=== PATIENT | male | born 1980 | race Caucasian/White ===

== ENCOUNTER 2018-03-09 16:07 | Emergency (ER) | payer BC ==
[2018-03-09 16:19] VITALS: BP 129/84
--- NOTE | 2018-03-09 16:45 | EDM.PDOC ---
ED HPI GENERAL MEDICAL PROBLEM - General Chief Complaint: ENT Problem Stated Complaint: TROUBLE SWALLOWING Time Seen by Provider: 03/09/18 16:21 Source of Information: Reports: Patient History Limitations: Reports: No Limitations - History of Present Illness INITIAL COMMENTS - FREE TEXT/NARRATIVE: The patient states that he has had the sensation of a lump in the upper part of his chest and left neck, that is worse after he eats, for several months. He states that when he belches, it has a "nasty" smell. He has no problems swallowing either solids or liquids, and his symptoms are not related to body position. No recent weight loss, although the patient is apprehensive about eating. The patient states that he quit smoking, chewing tobacco, and cut way back on his alcohol, 67 days ago, in an attempt to alleviate his symptoms. His symptoms persisted. He states that he was seen at the [facility] about 5 weeks ago. An influenza and strep test were negative. He was discharged home, but returned 3 days later for persistent symptoms, at which time they prescribed omeprazole 20 mg twice a day for 5 days, then once a day thereafter. He states that he is still on the omeprazole. They also recommended an [id number] probiotic, and that he drink apple cider vinegar, to "even out" his stomach acidity. He states that these treatments have not helped at all, in fact, the apple cider vinegar seems to make his symptoms worse. The patient then followed up with his primary care physician in [place] about 3 weeks ago. He states in the full blood panel was performed, and returned as normal. The PCP did not have any recommendations, as the patient was already on omeprazole, and the patient is to follow-up with his PCP in 2 weeks. The patient now presents to the ED because of persistent symptoms. Throat Pain Score (Numeric/FACES): 5 - Related Data Allergies Allergy/AdvReac Type Severity Reaction Status Date / Time No Known Allergies Allergy Verified 09/06/15 12:08 Home Meds: Home Meds Lisinopril 40 mg PO DAILY 02/15/15 [History] Past Medical History Cardiovascular History: Reports: Hypertension Endocrine/Metabolic History: Reports: Obesity/BMI 30+ Social & Family History - Tobacco Use Smoking Status *Q: Former Smoker Tobacco Use Within Last Twelve Months: Smokeless Tobacco Years of Tobacco use: 3 Packs/Tins Daily: 0.1 Month/Year Tobacco Last Used: Quit Dec 2017 - Caffeine Use Caffeine Use: Reports: Coffee, Energy Drinks, Soda, Tea - Alcohol Use Alcohol Use History: Yes Days Per Week of Alcohol Use: 2 Number of Drinks Per Day: 1 Total Drinks Per Week: 2 Alcohol Use Frequency: Socially - Recreational Drug Use Recreational Drug Use: No - Living Situation & Occupation Living situation: Reports: , with Spouse, with Family (4 kids) Occupation: Employed (plan consultant) ED ROS GENERAL - Review of Systems Review Of Systems: ROS reveals no pertinent complaints other than HPI. ED EXAM, GENERAL - Physical Exam Exam: See Below Exam Limited By: No Limitations General Appearance: Alert, WD/WN, No Apparent Distress Eye Exam: Bilateral Eye: Normal Inspection Ears: Normal External Exam, Hearing Grossly Normal Nose: Normal Inspection, No Blood Throat/Mouth: Normal Inspection, Normal Lips, Normal Teeth, Normal Gums, Normal Oropharynx, Normal Voice, No Airway Compromise Head: Atraumatic, Normocephalic Neck: Normal Inspection, Supple, Non-Tender, Full Range of Motion. No: Lymphadenopathy (L), Lymphadenopathy (R) Respiratory/Chest: No Respiratory Distress, Lungs Clear, Normal Breath Sounds, No Accessory Muscle Use Cardiovascular: Normal Peripheral Pulses, Regular Rate, Rhythm, No Edema, No Gallop, No JVD, No Murmur, No Rub Peripheral Pulses: 4+: Radial (L), Radial (R) GI/Abdominal: Normal Bowel Sounds, Soft, Non-Tender, No Organomegaly, No Distention, No Abnormal Bruit, No Mass, Other (Obese) (Male) Exam: Deferred Rectal (Males) Exam: Deferred Back Exam: Normal Inspection, Full Range of Motion Extremities: Normal Inspection, Normal Range of Motion, No Pedal Edema, Normal Capillary Refill Neurological: Alert, Oriented, Normal Cognition, No Motor/Sensory Deficits Psychiatric: Normal Affect Skin Exam: Warm, Dry, Intact, Normal Color, No Rash Course - Vital Signs Last Recorded V/S: Last Vital Signs Temp 37.3 C 03/09/18 16:18 Pulse 93 03/09/18 16:18 Resp 20 03/09/18 16:18 BP 129/84 03/09/18 16:18 Pulse Ox 98 03/09/18 16:18 - Re-Assessments/Exams Free Text/Narrative Re-Assessment/Exam: 03/09/18 16:39 The patient has been suffering from globus sensation for the past 5 weeks, with no relief despite taking omeprazole. His symptoms are concerning for a Zenker's diverticulum versus GERD versus an esophageal tumor, as the patient has a history of smoking, chewing tobacco, and drinking. I'm recommending an EGD, and am therefore referring him to Dr. Denis. Since the omeprazole is not helping, I don't see that he needs to continue to take it, and I am advising that he stop drinking apple cider vinegar. Additionally, while probiotics have roles in certain medical circumstances, none is present in this case. Departure - Departure Time of Disposition: 16:41 Disposition: Home, Self-Care 01 Condition: Good Clinical Impression: Globus sensation - Discharge Information Referrals: PCP,Not In Area [Primary Care Provider] - Librado Denis MD [Physician] - Additional Instructions: You were seen in the emergency room for 5 weeks of the sensation of a lump in your throat, a condition called globus sensation. The next appropriate test is an EGD (scope of your esophagus and stomach), to evaluate for a Zenker's diverticulum, esophageal motility disorder, or evidence of acid reflux. Follow-up with the surgeon Dr. Denis at the next available appointment, to arrange for an EGD. In the meantime, since omeprazole is not helping, you do not need to continue to take it. We strongly advise that you STOP drinking apple cider vinegar, and while probiotics can be useful in some circumstances, there is no indication for you to take it at this time. If any other problems, please do not hesitate to return to the ER.
== END 2018-03-09 17:00 | disposition home or self-care (01) ==
LOC: JD.ED 16:07
DX: F45.8 Other somatoform disorders (principal); E66.9 Obesity, unspecified; Z79.899 Other long term (current) drug therapy; Z87.891 Personal history of nicotine dependence
CPT/HCPCS: 99283; 99284

== ENCOUNTER 2018-03-13 10:01 | Emergency (ER) | payer BC ==
[2018-03-13 10:13] VITALS: BP 122/94
[2018-03-13] MEDS ORDERED: Iopamidol 612 MG/ML 100 ML Bottle IVPUSH ONE (11:19)
[2018-03-13] MEDS ORDERED: Sodium Chloride 0.9% 10 ML Syringe FLUSH PRN (11:19)
--- NOTE | 2018-03-13 11:24 | EDM.PDOC ---
<Daphney Johnson - Last Filed: 03/13/18 11:15> ED HPI GENERAL MEDICAL PROBLEM - General Chief Complaint: Respiratory Problem Stated Complaint: TROUBLE BREATHING Time Seen by Provider: 03/13/18 10:29 Source of Information: Reports: Patient History Limitations: Reports: No Limitations - History of Present Illness INITIAL COMMENTS - FREE TEXT/NARRATIVE: Patient is a 37 YO male who presents today with tightness in his throat. He states this started about 5 weeks ago. He reports a feeling of tightness that is limiting his ability to swallow solids. He is apprehensive to eat thus has lost 10 lbs. He states it is not necessarily painful to swallow. He has not chocked on solids or liquids. He states the feeling is worse after eating and last several hours. He last ate yesterday afternoon and is still having this globus sensation currently. He feels this is made worse while lying down. He has a history of GERD and has been on omeprazole which does not relieve his symptoms. He also feels like his thoat is a little tight while taking a deep breath. He does have an EGD scheduled for next . He stopped smoking and chewing tobacco about 2 months ago and does feel like he has some increased anxiety. He denies fever, chest pain, cough, sore throat, shortness of breath, nausea, vomiting, or diarrhea. Chest Pain Score (Numeric/FACES): 9 - Related Data Allergies Allergy/AdvReac Type Severity Reaction Status Date / Time No Known Allergies Allergy Verified 03/13/18 10:09 Home Meds: Home Meds Lisinopril 40 mg PO DAILY 02/15/15 [History] Past Medical History Cardiovascular History: Reports: Hypertension Gastrointestinal History: Reports: GERD Endocrine/Metabolic History: Reports: Obesity/BMI 30+ Social & Family History - Tobacco Use Smoking Status *Q: Former Smoker Years of Tobacco use: 3 Packs/Tins Daily: 0.1 Used Tobacco, but Quit: No Month/Year Tobacco Last Used: december - Caffeine Use Caffeine Use: Reports: Coffee, Energy Drinks, Soda, Tea - Alcohol Use Days Per Week of Alcohol Use: 2 Number of Drinks Per Day: 1 Total Drinks Per Week: 2 - Recreational Drug Use Recreational Drug Use: No - Living Situation & Occupation Living situation: Reports: , with Spouse, with Family (4 kids) Occupation: Employed (recruitment consultant) ED ROS GENERAL - Review of Systems Review Of Systems: See Below Constitutional: Reports: Weight Loss. Denies: Fever, Chills HEENT: Reports: Other (throat tightness). Denies: Throat Pain, Throat Swelling Respiratory: Reports: No Symptoms Cardiovascular: Reports: No Symptoms GI/Abdominal: Reports: No Symptoms Musculoskeletal: Reports: No Symptoms Skin: Reports: No Symptoms Neurological: Reports: No Symptoms Psychiatric: Reports: Anxiety ED EXAM, GENERAL - Physical Exam Exam: See Below Exam Limited By: No Limitations General Appearance: Alert, WD/WN, No Apparent Distress Eye Exam: Bilateral Eye: EOMI, PERRL Throat/Mouth: Normal Inspection, Normal Lips, Normal Teeth, Normal Gums, Normal Oropharynx, Normal Voice, No Airway Compromise Head: Atraumatic Neck: Lymphadenopathy (L) (slightly enlarged, tender left cervial lymph node) Respiratory/Chest: No Respiratory Distress, Lungs Clear, Normal Breath Sounds Cardiovascular: Normal Peripheral Pulses, Regular Rate, Rhythm, No Murmur GI/Abdominal: Normal Bowel Sounds, Soft, Non-Tender, No Distention Neurological: Alert, Oriented, CN II-XII Intact, Normal Cognition, No Motor/ Sensory Deficits Psychiatric: Normal Affect, Normal Mood Skin Exam: Warm, Dry, Intact, Normal Color, No Rash Course - Vital Signs Last Recorded V/S: Last Vital Signs Temp 97.0 F 03/13/18 10:09 Pulse 66 03/13/18 10:09 Resp 10 L 03/13/18 10:09 BP 122/94 H 03/13/18 10:09 Pulse Ox 97 03/13/18 10:09 - Orders/Labs/Meds Orders: Active Orders 24 hr Category Date Time Status EKG Documentation Completion [RC] ASDIRECTED Care 03/13/18 10:19 Active EKG 12 Lead [EK] Stat Ther 03/13/18 10:19 Ordered Labs: Laboratory Tests 03/13/18 03/13/18 03/13/18 Range/Units 10:40 10:40 10:40 WBC 6.24 (4.23-9.07) K/mm3 RBC 5.69 (4.63-6.08) M/mm3 Hgb 16.7 (13.7-17.5) gm/L Hct 50.2 (40.1-51.0) % MCV 88.2 (79.0-92.2) fl MCH 29.3 (25.7-32.2) pg MCHC 33.3 (32.2-35.5) g/dl RDW Std Deviation 41.1 (35.1-43.9) fL Plt Count 198 (163-337) K/mm3 MPV 9.7 (9.4-12.3) fl Neut % (Auto) 55.6 (34.0-67.9) % Lymph % (Auto) 32.2 (21.8-53.1) % [place] % (Auto) 8.8 (5.3-12.2) % Eos % (Auto) 2.6 (0.8-7.0) Baso % (Auto) 0.5 (0.1-1.2) % Neut # (Auto) 3.47 (1.78-5.38) K/mm3 Lymph # (Auto) 2.01 (1.32-3.57) K/mm3 [place] # (Auto) 0.55 (0.30-0.82) K/mm3 Eos # (Auto) 0.16 (0.04-0.54) K/mm3 Baso # (Auto) 0.03 (0.01-0.08) K/mm3 Sodium 139 (136-145) mEq/L Potassium 4.4 (3.5-5.1) mEq/L Chloride 101 (98-107) mEq/L Carbon Dioxide 29 (21-32) mEq/L Anion Gap 13.4 (5-15) BUN 15 (7-18) mg/dL Creatinine 1.0 (0.7-1.3) mg/dL Est Cr Clr Drug Dosing 96.40 mL/min Estimated GFR (MDRD) > 60 (>60) mL/min BUN/Creatinine Ratio 15.0 (14-18) Glucose 100 (74-106) mg/dL Calcium 9.7 (8.5-10.1) mg/dL Total Bilirubin 0.6 (0.2-1.0) mg/dL AST 14 L (15-37) U/L ALT 52 (16-63) U/L Alkaline Phosphatase 58 (46-116) U/L Troponin I < 0.017 (0.00-0.056) ng/mL Total Protein 8.2 (6.4-8.2) g/dl Albumin 4.5 (3.4-5.0) g/dl Globulin 3.7 gm/dL Albumin/Globulin Ratio 1.2 (1-2) TSH 3rd Generation 1.483 (0.358-3.74) uIU/mL Meds: Medications Discontinued Medications Generic Name Dose Route Start Last Admin Trade Name Freq PRN Reason Stop Dose Admin Iopamidol 100 ml 03/13/18 11:19 03/13/18 11:23 Isovue-300 (61%) IVPUSH 03/13/18 11:20 100 ml ONETIME ONE Administration Sodium Chloride 10 ml 03/13/18 11:19 03/13/18 11:23 Saline Flush FLUSH 10 ml ONETIME PRN Administration IV FLUSH Departure - Departure Disposition: Home, Self-Care 01 Clinical Impression: Difficulty swallowing Qualifiers: Dysphagia type: unspecified Qualified Code(s): R13.10 - Dysphagia, unspecified - Discharge Information Instructions: Dysphagia Referrals: PCP,Not In Area [Primary Care Provider] - Forms: ED Department Discharge Additional Instructions: Continue with clear liquids and very soft diet as tolerated, follow-up with your regular provider early next week as planned and also follow-up for endoscopy next week also as planned. Ativan if needed for severe throat and chest tightness, difficulty sleeping or severe anxiety, do not drive or work when taking that medication. - My Orders Last 24 Hours: My Active Orders 03/13/18 10:19 EKG Documentation Completion [RC] ASDIRECTED EKG 12 Lead [EK] Stat - Assessment/Plan Last 24 Hours: My Active Orders 03/13/18 10:19 EKG Documentation Completion [RC] ASDIRECTED EKG 12 Lead [EK] Stat <Philip Hoff - Last Filed: 03/13/18 19:11> Course - Re-Assessments/Exams Free Text/Narrative Re-Assessment/Exam: 03/13/18 19:10 initial hx exam was done by KEM Brewer student. I also did see patient and evaluate patient. I agree with her hx and exam as documented. Due to the severity of his symptoms, 10-12 pound weight loss in the last several weeks I did discuss option of doing a chest CT to look for intrathoracic pathology. Patient readily agreed with that. CT was done which did not show acute abnormality, see radiology report for details. So did come back relatively normal. Is scheduled for EGD in about 1 week when he gets back home. Discharge instructions as documented. Departure - Departure Time of Disposition: 13:12 Condition: Fair
--- NOTE | 2018-03-13 12:29 | CT ---
CT chest Technique: Multiple axial sections through the chest were obtained. Intravenous contrast was utilized. Comparison: Prior chest x-ray performed earlier on the same day (10:44 AM). Findings: Mediastinum and hilar regions appear unremarkable. Esophagus shows no surrounding mass effect. No esophageal wall thickening is appreciated on this exam. No hiatal hernia is seen. Trachea appears within normal limits as well as the main right and left bronchus appearing within normal limits No axillary adenopathy is seen. Lungs are clear. Bone window setting shows no acute bony abnormality. Visualized portions of the upper abdominal structures shows fatty infiltration within the liver. Impression: 1. No abnormality is identified on CT study of the chest. 2. Incidental fatty infiltration noted within the liver. Diagnostic code #2
--- NOTE | 2018-03-13 13:21 | CR ---
Chest: Frontal view of the chest was obtained. Comparison: Prior chest x-ray of 12/31/16. Heart size and mediastinum are normal. Lungs are clear. Bony structures are grossly intact. Impression: 1. Nothing acute is seen on frontal chest x-ray. Diagnostic code #1
== END 2018-03-13 13:27 | disposition home or self-care (01) ==
LOC: JD.ED 10:01
DX: R13.10 Dysphagia, unspecified (principal); K21.9 Gastro-esophageal reflux disease without esophagitis; I10 Essential (primary) hypertension; Z79.899 Other long term (current) drug therapy; Z87.891 Personal history of nicotine dependence
CPT/HCPCS: 36415; 71045; 71260; 80053; 84443; 84484; 85025; 93005; 99285; J7050; Q9967